=== PATIENT | female | born 1975 | race African-American/Black ===

== ENCOUNTER 2016-10-01 19:05 | Inpatient (IN) ==
[2016-10-01 20:09] LABS: BASO% 0.4 % (0.0-0.8); HEMATOCRIT 25.5 % (37.0-47.0); HEMOGLOBIN 7.5 g/dL (12.0-16.0); IMM GRAN# 0.02 X1000 (0.0-0.04); IMM GRAN% 0.2 % (0.0-0.5); LYMPH% 15.3 % (20.5-51.1); MANUAL DIFF NEEDED? YES; MCH 20.1 PG (27-31); MCHC 29.4 g/dL (33-37); MCV 68.4 FL (81-99); MONO# 0.83 X1000 (0.11-0.59); MONO% 8.5 % (1.7-9.3); MPV 9.1 FL (7.4-10.4); NEUT% 74.6 % (42.2-75.2); PLT 422 X1000 (130-400); RBC 3.73 XMIL (4.2-5.4)
[2016-10-01 20:21] LABS: EOS 2 % (1-10); LYMPHS 12 % (21-51); MONO 6 % (1-9)
[2016-10-01 20:22] LABS: HYPOCHROM OCCASIONAL
[2016-10-01 20:25] LABS: AGAP 13; ALBUMIN 3.8 g/dL (3.5-5.0); ALKALINE PHOSPHATASE 67 U/L (32-104); BUN 9 mg/dL (8-22); CALCIUM 9.4 mg/dL (8.8-10.2); CHLORIDE 98 mmol/L (98-107); COSMO 267; GOT 11 U/L (10-30); GPT 9 U/L (10-36); POTASSIUM 3.3 mmol/L (3.5-5.1); SODIUM 134 mmol/L (136-145); TCO2 22 mmol/L (25-35); TOTAL PROTEIN 8.5 g/dL (6.3-8.3)
--- NOTE | 2016-10-01 20:28 | EKG Report ---
Test Performed on : 10/01/2016 8:24:20 PM Test Reason : pain Blood Pressure : / mmHG Vent. Rate : 094 BPM Atrial Rate : 094 BPM P-R Int : 158 ms QRS Dur : 084 ms QT Int : 340 ms P-R-T Axes : 045 -01 017 degrees QTc Int : 425 ms Normal sinus rhythm. Normal ECG When compared with ECG of 12-APR-2015 09:46, No significant change was found Unconfirmed Result
--- NOTE | 2016-10-01 20:47 | Diag Imaging Result Doc PS360 ---
EXAM: CHEST-2 VIEWS HISTORY: cough TECHNIQUE: COMPARISON: 05/17/2015 FINDINGS: Poor inspiratory effort. Mild increased markings in the lower lungs likely representing atelectasis although there could be small underlying infiltrate in the left base. The heart is not enlarged. The vessels are not distended. No pleural effusions. IMPRESSION: Basilar atelectasis with questionable underlying infiltrate on the left. Electronically signed by Vasquez Kimball 10/01/2016 8:44 PM
--- NOTE | 2016-10-01 21:24 | Diag Imaging Result Doc PS360 ---
EXAM: ANGIOGRAM/PULMONARY ARTERIES HISTORY: chest pain TECHNIQUE: CT chest with intravenous contrast. Dose reduction protocol. COMPARISON: 05/10/2015. FINDINGS: There is a small left-sided pleural effusion measuring only 14 mm posteriorly and inferiorly in the midline. No right-sided effusion. Heart is mildly enlarged. No enlarged mediastinal lymph nodes. No thoracic aortic aneurysm. There are small filling defects within several branches of each lower lobe. No large central saddle emboli in the main pulmonary arteries. No consolidation. There is atelectasis in the lower left lung. Questionable small underlying infiltrate. IMPRESSION: There are pulmonary emboli within several branches of each lower lobe. A preliminary report was given to Dr. Marin in the emergency room at 9:20 PM Electronically signed by Vasquez Kimball 10/01/2016 9:22 PM
[2016-10-01 22:14] LABS: OCCULT BLOOD 1 NEGATIVE (NEGATIVE)
[2016-10-01 22:31] LABS: IRON SATURATION 3 %; TIBC 336 ug/dL; TOTAL IRON 11 ug/dL (49-151); UNBOUND IRON 325 ug/dL (112-346)
[2016-10-01] MEDS ORDERED: NS 1,000 ML IV ONE (22:53)
[2016-10-02] MEDS ORDERED: NS 1,000 ML IV ONE (08:17)
--- NOTE | 2016-10-02 09:01 | HISTORY AND PHYSICAL ---
REASON FOR ADMISSION: Shortness of breath. HISTORY OF PRESENT ILLNESS: The patient is a 41-year-old female, who unfortunately has a known history of pulmonary emboli. She had been on anticoagulation until several months ago, at which time she states that she quit her job and therefore could not afford her medications and had simply stopped them. She presented back to the emergency department at this time with shortness of breath, chest wall pain, hurt to breathe. Notes that she had been on Coumadin before, but it became too expensive. ALLERGIES: No known drug allergies. MEDICATIONS: No current medications. PAST MEDICAL HISTORY: Pulmonary emboli. Rectal-vaginal fistula. SOCIAL HISTORY: Patient continues to smoke approximately a pack a day. Did discuss with her that it would be a better lifelong decision to afford her Coumadin and stop paying for cigarettes. Discussed with her the perils of smoking to include pulmonary emboli and . REVIEW OF SYSTEMS: The patient denies any current chest pain. Denies any palpitation. Denies any fevers or chills. Does states that she is short of breath with much activity. Denies fevers or chills, dysuria, urinary frequency or urgency. Denies constipation, melena. Denies hematochezia, easy bruising or hematuria. FAMILY HISTORY: Noncontributory. PHYSICAL: Vital Signs: Temp 98, pulse 106, respiratory 18, BP 146/83, satting 98% on room air. General: Patient is awake, alert, oriented. Currently in no real respiratory distress. Speech is regular. Memory is intact. Neck: Supple. CV: Regular rate. Chest: Clear. Abdomen: Soft. Extremities: Moves all extremities. Neurologic: No focal changes. Skin: Warm, dry and no rashes. ASSESSMENT: 1. Left-sided pleural effusion. Stable. 2. Bilateral pulmonary emboli in the lower lobes. 3. Medical noncompliance. 4. Chronic depression. 5. Chronic tobacco abuse. PLAN: Discussed with patient the importance of staying on Coumadin. We will continue Lovenox twice a day. We will start her on mg/kg of Lovenox. Start Coumadin and follow. cc: Antoine Oconnor MD
[2016-10-02] MEDS: LOVENOX SUBQ SCH ×2 (09:35→21:07)
[2016-10-02] MEDS: COUMADIN PO SCH (21:07)
[2016-10-03] MEDS ORDERED: ZOFRAN IV PRN (06:39)
[2016-10-03] MEDS ORDERED: TYLENOL PO PRN (06:39)
[2016-10-03 07:19] LABS: INR 0.95 (0.86-1.15); PROTIME 13.4 Seconds (12.1-15.5)
--- NOTE | 2016-10-03 08:47 | PROGRESS NOTE ---
DATE: 10/03/2016 SUBJECTIVE: The patient denies any cough, congestion, denies any shortness of breath. Currently denies any nausea, vomiting, overnight. Does state that last night she had an episode of coughing and coughed up some blood, but has not done any since. PHYSICAL EXAMINATION: Temperature 98, pulse 74, respiratory rate 18, BP 127/70. Sat 100% on room air. General: Patient is awake, alert. She is currently in no real respiratory distress. She is pleasant to talk with. Neck supple. CV: Regular rate. Chest Relatively clear. Abdomen is soft. Extremities: Moves all extremities. Neurologic: No focal changes. Skin: Warm, dry. No rashes. LABORATORY DATA: INR 0.9. ASSESSMENT: 1. Bilateral pulmonary emboli lower lobe, stable. 2. Hemoptysis likely secondary to pulmonary emboli. We will check a chest x-ray. 3. Medical noncompliance. Patient notes that she stopped her medication. Again, I discussed with the patient the perils of this and the dangers. 4. Chronic tobacco abuse. Discussed with the patient reasons for stopping smoking. PLAN: We will continue Coumadin until INR is greater than. cc: Antoine Oconnor MD
[2016-10-03] MEDS: LOVENOX SUBQ SCH ×2 (08:57→20:26)
[2016-10-03 15:18] LABS: HEMOGLOBIN ELECTROPHORESIS SEE COMMENTS
[2016-10-03] MEDS: COUMADIN PO SCH (20:26)
[2016-10-04 06:08] LABS: INR 0.95 (0.86-1.15); PROTIME 13.4 Seconds (12.1-15.5)
--- NOTE | 2016-10-04 07:34 | Diag Imaging Result Doc PS360 ---
EXAM: CHEST-2 VIEWS - 10/04/2016 HISTORY: hypoxia TECHNIQUE: Chest two views COMPARISON: 10/01/2016 FINDINGS: There has been some increase in atelectasis plus or minus infiltrate at the left base. There is a small left pleural effusion. There is subsegmental atelectasis at the right base similar to the previous exam. There is no pneumothorax seen. Heart size is stable. IMPRESSION: Some increase in atelectasis plus or minus infiltrate at the left base. Small left pleural effusion. Electronically signed by Godfrey Ken 10/04/2016 7:31 AM
[2016-10-04] MEDS: LOVENOX SUBQ SCH ×2 (08:48→20:26)
[2016-10-04] MEDS ORDERED: VENOFER 300 MG in NS 250 ML IV ONE (11:30)
--- NOTE | 2016-10-04 11:57 | PROGRESS NOTE ---
DATE: 10/04/2016 SUBJECTIVE: Today, Ms. Low refers to be doing fine. Denies any complaints. OBJECTIVE: Vital Signs: Blood pressure 99/53, pulse 68, respirations 17, temperature is 98.2 degrees. General: Ms. Low is a 41-year-old, -[place] female. She is in bed, not in any seemingly distress. HEENT: Mucosa is slightly pale. Anicteric. Acyanotic. Neck is supple. Chest: Air entry is bilaterally reduced, more so to the right posterior lung field. Cardiovascular: Regular rate and rhythm. No murmurs. Abdomen is soft, nontender. Extremities: No pedal edema. HAND MARKER: Patient is awake, alert, and oriented x4. There is no focal neurological deficit. LABORATORY DATA: None for today. Significantly of note, the patient has a ferritin level of 34 and percent saturation of 3. IMAGING DATA: A CTA of the lungs was done which showed pulmonary emboli within several branches of each lower lobe. ASSESSMENT: 1. Acute hypoxemic respiratory distress on presentation secondary to bilateral pulmonary embolus. 2. Bilateral pulmonary embolus. This is not the first time the patient has had this. She had a similar presentation last year. Not quite sure if she does have an underlying thrombophilic tendencies, but would encourage her to continue with the current anticoagulation and follow up with Heme/Onc for further workup. So far, all the thrombophilic workup has been unrevealing. 3. Medical noncompliance. Patient has been advised. 4. Active tobacco abuse. Patient has been advised. 5. Iron deficiency anemia secondary to chronic blood loss. 6. Menometrorrhagia secondary to uterine fibroids. Patient follows up with an CONTINUOUS DRYOUT OPERATOR and has an appointment to do hysterectomy. So, in general, Ms. Low is relatively stable. INR is still subtherapeutic, so we are going to continue with the current therapy. We will give her a dose of iron infusion IV 300 mg for the remarkable iron deficiency anemia. Patient would eventually need to follow up with her CONTINUOUS DRYOUT OPERATOR for the hysterectomy appointment. Anticipate that hopefully by tomorrow or the day after, we might be able to discharge Ms. Low. We have stressed the importance of medication compliance with her and also tobacco cessation. cc: Hira Dudley MD
[2016-10-04] MEDS: COUMADIN PO SCH (20:26)
[2016-10-05 06:12] LABS: BASO% 1.2 % (0.0-0.8); EOS# 0.31 X1000 (0.0-0.7); EOS% 4.7 % (0.0-10.0); HEMATOCRIT 22.8 % (37.0-47.0); HEMOGLOBIN 6.5 g/dL (12.0-16.0); IMM GRAN# 0.01 X1000 (0.0-0.04); IMM GRAN% 0.2 % (0.0-0.5); LYMPH# 2.41 X1000 (1.2-3.4); LYMPH% 36.4 % (20.5-51.1); MANUAL DIFF NEEDED? NO; MCH 19.9 PG (27-31); MCHC 28.5 g/dL (33-37); MCV 69.9 FL (81-99); MONO# 0.57 X1000 (0.11-0.59); MONO% 8.6 % (1.7-9.3); MPV 8.6 FL (7.4-10.4); NEUT% 48.9 % (42.2-75.2); PLT 382 X1000 (130-400); RBC 3.26 XMIL (4.2-5.4)
[2016-10-05 06:27] LABS: AGAP 8; BUN 8 mg/dL (8-22); CALCIUM 8.8 mg/dL (8.8-10.2); CHLORIDE 104 mmol/L (98-107); COSMO 268; POTASSIUM 3.8 mmol/L (3.5-5.1); SODIUM 135 mmol/L (136-145); TCO2 22 mmol/L (25-35)
[2016-10-05 06:47] LABS: INR 1.16 (0.86-1.15); PROTIME 15.7 Seconds (12.1-15.5)
[2016-10-05] MEDS ORDERED: NS 1,000 ML IV SCH (07:25)
[2016-10-05] MEDS: LOVENOX SUBQ SCH ×2 (08:09→20:11)
[2016-10-05] MEDS: DIFLUCAN PO SCH (12:08)
[2016-10-05] MEDS: PROVERA PO SCH ×2 (13:38→20:17)
--- NOTE | 2016-10-05 13:48 | PROGRESS NOTE ---
DATE: 10/05/2016 SUBJECTIVE: Today Ms. Low refers to be doing a little better. She says she is having some vaginal itching but the vaginal bleed is improving. OBJECTIVE: Vital signs: Blood pressure is 117/47, pulse of 67, respirations 16 , temperature 97.7 degrees, saturation is 95%. General: Ms. Low 41 years old female. She is in bed, no distress. HEENT: Mucosa is pink and moist. Anicteric. Acyanotic. Neck: Supple. Chest: Good air entry bilateral. A few crepitations to the posterior right lung field. Cardiovascular: Regular rate and rhythm. No murmurs, no rubs. No gallops. Abdomen: Soft, just minimally tender in the lower abdomen. There is a palpable uterine mass almost at the size of 16 weeks of gestation and this is due to the uterine fibroid. There is no hepatosplenomegaly. Extremities: No pedal edema. GAMBLING SUPERVISOR: Patient is awake, alert and oriented x4. There is no focal neurological deficit. LABORATORY DATA: Today hemoglobin is 6.5, platelet count of 385,000, WBC is normal. Chemistry is reviewed. Sodium is 135, ferritin is 34. ASSESSMENT: 1. Acute hypoxemic respiratory distress on presentation secondary to bilateral pulmonary emboli. Patient is on Coumadin as well as heparin being bridged. INR this morning is 1.16. Will continue with the current dose of Coumadin. 2. Medical noncompliance. Patient has been advised. 3. Active tobacco abuse. Patient has been advised. 4. Iron deficiency anemia secondary to chronic blood loss. The patient has been given a dose of iron. This morning hemoglobin is lower so we are going to transfuse her 2 PRBCs. 5. Menorrhagia secondary to uterine fibroids. According to the patient she does not have any primary care physician, she does not have any obstetrics and gynecology that normally follows up. We would therefore get OBGYN to see her here in the hospital before we discharge her. 6. Suspected Isabelle vaginitis. Will start the patient on fluconazole. So today Ms. Low is doing relatively fine. Will put her on 3 day course of fluconazole for suspected Isabelle vaginitis. Will consult WAREHOUSE LOGISTICS COORDINATOR to evaluate her for the uterine fibroids. We will continue with her anticoagulation and we are going to transfuse her 2 units of PRBC today and follow up with her hemoglobin and hematocrit. Discharge soon cc: Hira Dudley MD MTDD
--- NOTE | 2016-10-05 19:48 | CONSULTATION ---
DATE OF CONSULTATION: 10/05/2016 REASON FOR CONSULTATION: Menorrhagia. SUMMARY: Tara Low is a 41-year-old 4, para 4. I delivered her 1st child 17 years ago. She has a pulmonary embolism and is currently on anticoagulants. Her hemoglobin and hematocrit has dropped from 7.5/35.5 to 6.5/22.8. She states that her menstrual cycles are irregular and they are heavy and prolonged. This has been a chronic problem. She has also been told that she has uterine leiomyomata. On physical examination there are palpable pelvic masses to her umbilicus. IMPRESSION: 1. Menorrhagia. 2. Uterine leiomyomata. PLAN: She was having heavy periods and was anemic before and anticoagulants can certainly make the condition worse. Estrogen therapy is contraindicated due to her pulmonary embolism. We also cannot use Lysteda. Our only option is high doses of Provera that should not make her coagulation problems worse. I would put her on 20 mg by mouth 3 times a day and of course I would like to see her in the office after discharge so we can talk about definitive surgery. cc: Noah Adams MD MTDD
[2016-10-05] MEDS: COUMADIN PO SCH (20:11)
[2016-10-06] MEDS: PROVERA PO SCH ×3 (05:15→20:41)
[2016-10-06 06:36] LABS: EOS# 0.36 X1000 (0.0-0.7); EOS% 3.3 % (0.0-10.0); HEMATOCRIT 29.8 % (37.0-47.0); HEMOGLOBIN 9.3 g/dL (12.0-16.0); IMM GRAN# 0.05 X1000 (0.0-0.04); IMM GRAN% 0.5 % (0.0-0.5); LYMPH# 2.95 X1000 (1.2-3.4); LYMPH% 26.7 % (20.5-51.1); MANUAL DIFF NEEDED? YES; MCHC 31.2 g/dL (33-37); MCV 70.6 FL (81-99); MONO# 0.82 X1000 (0.11-0.59); MONO% 7.4 % (1.7-9.3); MPV 8.5 FL (7.4-10.4); NEUT% 61.1 % (42.2-75.2); PLT 373 X1000 (130-400); RBC 4.22 XMIL (4.2-5.4)
[2016-10-06 07:26] LABS: LYMPHS 29 % (21-51)
[2016-10-06 07:32] LABS: INR 1.21 (0.86-1.15); PROTIME 16.3 Seconds (12.1-15.5)
[2016-10-06] MEDS: DIFLUCAN PO SCH (09:45)
[2016-10-06] MEDS: LOVENOX SUBQ SCH ×2 (09:46→20:40)
--- NOTE | 2016-10-06 14:35 | PROGRESS NOTE ---
DATE: 10/06/2016 SUBJECTIVE: Ms Low states she is doing better. Vaginal itching is improving somewhat. Vaginal bleeding is improving. She denies any chest pain, shortness of breath, GI or issues. OBJECTIVE: Vital Signs: Blood pressure is 132/59 with a heart rate of 70, respirations are 20, temperature is 98.7 degrees with room air saturations of 97-100%. HEENT: Head is normocephalic, atraumatic. Pupils equal, round, react to light. EOMS are intact. Sclerae are nonicteric. Mucous membranes are moist. Neck: Supple. Trachea midline. Cardiovascular: Regular rate and rhythm. S1, S2 appreciated. Pulmonary: Breath sounds are clear with no increased work of breathing noted. Gastrointestinal: Abdomen is soft with some lower abdomen tenderness, which she states has improved somewhat. Bowel sounds are present in all 4 quadrants. Extremities: No clubbing, cyanosis, or edema. Calves are nontender. Pulses are palpable x4. Neurologic: She is alert and oriented x3. DIAGNOSTICS: Labs: WBC is 11.04 with a hemoglobin of 9.3, hematocrit 29.8, and platelets of 373,000. INR is 1.21. ASSESSMENT: 1. Acute hypoxemic respiratory distress on presentation secondary to bilateral pulmonary emboli. The patient's INR is up to 1.2 today. We will continue with the current dose of Coumadin as well as Lovenox bridging. Once she is therapeutic at 2-3, we will admit be able to stop Lovenox. 2. Menorrhagia secondary to uterine fibroids. Ms Low was evaluated by Dr. Adams who recommended Provera with followup with him as an outpatient to talk about definitive surgery. 3. Medical noncompliance. The patient has been advised on the importance of following up with physicians and taking medications as prescribed. 4. Iron deficiency anemia secondary to chronic blood loss. This morning her hemoglobin and hematocrit are 9.3 and 29.8. We will continue to trend. 5. Suspected Isabelle vaginitis. We will continue fluconazole. Dictated by BIRGIT Johnson for Talha Sánchez MD cc: BIRGIT Johnson MD pt examined, agree with above APENOT MTDD
[2016-10-06] MEDS: COUMADIN PO SCH (20:41)
[2016-10-07] MEDS: PROVERA PO SCH ×3 (05:01→20:26)
[2016-10-07 06:09] LABS: HEMATOCRIT 30.6 % (37.0-47.0); HEMOGLOBIN 9.3 g/dL (12.0-16.0); MCH 21.9 PG (27-31); MCHC 30.4 g/dL (33-37); MPV 9.1 FL (7.4-10.4); RBC 4.25 XMIL (4.2-5.4)
[2016-10-07 06:23] LABS: AGAP 9; BUN 11 mg/dL (8-22); CALCIUM 8.8 mg/dL (8.8-10.2); CHLORIDE 106 mmol/L (98-107); COSMO 273; POTASSIUM 4.1 mmol/L (3.5-5.1); SODIUM 137 mmol/L (136-145); TCO2 22 mmol/L (25-35)
[2016-10-07 06:27] LABS: INR 1.32 (0.86-1.15); PROTIME 17.5 Seconds (12.1-15.5)
[2016-10-07] MEDS: DIFLUCAN PO SCH (08:50)
[2016-10-07] MEDS: LOVENOX SUBQ SCH ×2 (08:50→20:25)
--- NOTE | 2016-10-07 09:53 | PROGRESS NOTE ---
DATE: 10/07/2016 SUBJECTIVE: Patient without any new complaints, still complains of left shoulder and left chest wall pain when she takes a deep breath. PHYSICAL EXAMINATION: Vital Signs: Temperature 98, pulse 59, respiratory rate 18, BP 112/52, saturation 98% on room air. General: Patient is awake, alert, currently in no respiratory distress. She is lying flat in the bed. HEENT: Normocephalic, atraumatic. PERRLA. Neck: Supple. CV: Regular rate. Chest: Clear. Abdomen: Soft. Extremities: Moves all extremities. Neurologic: No changes. Skin: Warm and dry. No rashes. LABS: Reviewed and stable. INR 1.32. ASSESSMENT: 1. Bilateral pulmonary emboli. Her INR is still low at 1.3. Her Coumadin has not been adjusted in several days. We will increase her Coumadin tonight and follow. She will need to remain in the hospital until her INR is therapeutic at 2-3. 2. Menorrhagia secondary to uterine fibroids. We will continue Provera. 3. Medical noncompliance. 4. Iron deficiency anemia. PLAN: Hopefully home in the next few days. cc: Antoine Oconnor MD
[2016-10-07] MEDS: COUMADIN PO SCH (20:25)
[2016-10-08] MEDS: PROVERA PO SCH ×3 (04:54→21:19)
[2016-10-08 06:08] LABS: INR 1.54 (0.86-1.15); PROTIME 19.7 Seconds (12.1-15.5)
--- NOTE | 2016-10-08 08:43 | PROGRESS NOTE ---
DATE: 10/08/2016 SUBJECTIVE: Patient without any new complaints. Still complains of left-sided chest wall pain with deep inspiration or with movement. Denies any fevers or chills. OBJECTIVE: Vital signs reviewed. Temperature 99 degrees, pulse 74, respiratory rate 18, BP 105/97, sat 98% on room air. General: The patient is awake, alert, oriented. Currently in no respiratory distress. She, unfortunately, is not getting out of bed without much prodding and prompting. HEENT: Normocephalic, atraumatic. MAGALY. Neck supple. CV: Regular rate. Chest: Relatively clear. No wheezing. No crackles. Abdomen is soft. Extremities: Moves all extremities. Neurologic: No changes. LABORATORY: INR 1.5. ASSESSMENT: 1. Bilateral pulmonary emboli. Patient's INR has finally started to move a little; it is at 1.5. We did increase her Coumadin last night to 20 mg. She has been on the same dose for several days and probably has already reached the steady state of that dose. 2. Menorrhagia; continue progesterone. PLAN: We will keep in the hospital until her INR is greater than 2. cc: Antoine Oconnor MD
[2016-10-08] MEDS: LOVENOX SUBQ SCH ×2 (08:54→21:17)
[2016-10-08] MEDS: DIFLUCAN PO SCH (08:54)
[2016-10-08] MEDS ORDERED: MYLICON PO ONE (13:53)
[2016-10-08] MEDS: MIRALAX PO SCH (18:44)
[2016-10-08] MEDS: COUMADIN PO SCH (21:16)
[2016-10-09] MEDS: PROVERA PO SCH ×3 (04:29→20:21)
[2016-10-09 06:41] LABS: INR 1.89 (0.86-1.15); PROTIME 23.2 Seconds (12.1-15.5)
[2016-10-09] MEDS ORDERED: LACTULOSE PO ONE (09:06)
[2016-10-09] MEDS: DIFLUCAN PO SCH (09:29)
[2016-10-09] MEDS: LOVENOX SUBQ SCH ×2 (09:29→20:20)
[2016-10-09] MEDS: MIRALAX PO SCH (09:29)
[2016-10-09] MEDS ORDERED: COUMADIN PO SCH ×2 (21:00)
[2016-10-10] MEDS: PROVERA PO SCH ×3 (04:13→20:00)
[2016-10-10 09:34] LABS: INR 3.61 (0.86-1.15); PROTIME 38.8 Seconds (12.1-15.5)
[2016-10-10] MEDS: DIFLUCAN PO SCH (10:19)
[2016-10-10] MEDS: LOVENOX SUBQ SCH ×3 (10:19→20:04)
[2016-10-10] MEDS: MIRALAX PO SCH (10:19)
--- NOTE | 2016-10-10 17:07 | PROGRESS NOTE ---
DATE: 10/10/2016 SUBJECTIVE: The patient without any new complaints. PHYSICAL EXAMINATION: Vital Signs: Reviewed. She is awake, alert, oriented. She is in no respiratory distress. Blood pressure is stable. Heart rate 80, respiratory 20. General: Patient is awake, alert, oriented. HEENT: Normocephalic, atraumatic. MAGALY. Neck: Supple. Cardiovascular: Regular rate. Chest: Clear. ASSESSMENT: 1. Hypercoagulopathy. Her INR has jumped to 3.5 from 1.8. We will hold her Coumadin tonight and decrease her dose. Certainly, I expect that it could go higher, with such a rapid increase. 2. Menorrhagia. She has had increased vaginal bleeding after INR was elevated. This is to be somewhat expected. Unfortunately, Ms. Low continues to refuse Provera, stating she is not going to take this at home. Again, discussed with her that surgery is not an option with a recent pulmonary embolus, and that she needs to take Provera to decrease the bleeding. 3. Medical noncompliance. 4. Iron deficiency anemia, secondary to chronic blood loss, secondary to menorrhagia. PLAN: As noted above, we will decrease her Coumadin dose to 10 mg. We will also hold her Coumadin tonight. Hopefully, she can be discharged home soon. cc: Antoine Oconnor MD
--- NOTE | 2016-10-10 17:15 | PROGRESS NOTE ---
DATE: 10/09/2016 SUBJECTIVE: The patient has no new complaints. She states left-sided chest wall pain with deep inspiration continues although she thinks this may be a little better. She denies fever or chills. OBJECTIVE: Vital Signs: Blood pressure 121/67 with a heart rate of 80, respirations are 18, temperature is 99.2 degrees with room air saturation of 97-100%. Cardiovascular: Regular rate and rhythm. S1 and S2 appreciated. Pulmonary: Breath sounds are clear with no increased work of breathing noted. Gastrointestinal: Abdomen is soft, nontender, nondistended with bowel sounds in all 4 quadrants. Extremities: No clubbing, cyanosis, or edema. Calves nontender. Pulses are palpable x4. Neurologic: She is alert and oriented x3. Cranial nerves 2-12 grossly intact. LABS: INR is 1.89. ASSESSMENT AND PLAN: 1. Bilateral pulmonary emboli. Patient's INR is 1.89. We will continue with her Coumadin and trend INRs. 2. Menorrhagia. The patient took the first doses of progesterone on October 05 but she has refused doses since. We will continue to follow. She does state that she has scant vaginal bleeding. Dictated by BIRGIT Johnson for Antoine Oconnor MD cc: BIRGIT Johnson MD
--- NOTE | 2016-10-10 17:35 | PROGRESS NOTE ---
DATE: 10/10/2016 SUBJECTIVE: The patient is sitting up in a chair. She states that she is having a little more vaginal bleeding today having used 1 pad. OBJECTIVE: Vital Signs: Blood pressure is 130/87 with a heart rate of 80, respirations are 18, room air saturations are 97-99%. General: Ms. Low is awake and alert. She is sitting up in a chair watching TV. Cardiovascular: Regular rate and rhythm S1, S2 appreciated. Pulmonary: Breath sounds are clear. No increased work of breathing noted. Gastrointestinal: Abdomen is soft, nontender, nondistended. Bowel sounds in all 4 quadrants. Extremities: No clubbing, cyanosis, or edema. Calves nontender. Pulses are palpable x4. Neurologic: She is alert and oriented x3. LABORATORY DATA: INR is 3.61. ASSESSMENT: 1. Bilateral pulmonary emboli. Patient's INR is elevated today. We will hold her Coumadin today, decreased the dose and continue to follow daily. 2. Menorrhagia. Patient continues to refuse her progesterone stating "that doctor does not know what he is doing, it is not time for my cycle yet." Despite explanations regarding progesterone she continues to refuse. She stated today that she continues with some scant bleeding, stating it has it has not changed in the last 2 days. We will continue to trend. We will continue to follow. Dictated by BIRGIT Johnson for Antoine Oconnor MD cc: BIRGIT Johnson MD
[2016-10-11] MEDS: PROVERA PO SCH (06:21)
[2016-10-11 06:58] LABS: INR 3.75 (0.86-1.15)
[2016-10-11] MEDS: DIFLUCAN PO SCH (08:36)
[2016-10-11] MEDS: LOVENOX SUBQ SCH (08:36)
[2016-10-11] MEDS: MIRALAX PO SCH (08:41)
[2016-10-11 11:48] VITALS: BP 128/72
--- NOTE | 2016-10-11 14:46 | DISCHARGE SUMMARY ---
ADMISSION DATE: 10/01/2016 DISCHARGE DATE: 10/11/2016 DIAGNOSES: 1. Bilateral pulmonary emboli, lower lobes. 2. Hypercoagulopathy. 3. Menorrhagia. 4. Iron deficiency anemia secondary to chronic blood loss secondary to menorrhagia. 5. Medical noncompliance. DIAGNOSTICS: 10/01/2016 pulmonary arteriogram revealed pulmonary emboli within several branches of each lower lobe. 10/04/2016 chest x-ray revealed atelectasis or infiltrate at the left base with a small left pleural effusion. HOSPITAL COURSE: Ms. Low presented to the Emergency Room complaining of shortness of breath. She has a known history of pulmonary emboli for which she had been on anticoagulation but several months ago she quit her job and could not afford her medication so she simply stopped them. Of note, she was on Coumadin but it became too expensive. CTA pulmonary was performed which revealed bilateral pulmonary emboli for which she was restarted on Coumadin. We did trend her INR and currently she went from 1.89 to 3.61. Warfarin was held and today she is 3.75. She has not complained of any further shortness of breath or dyspnea on exertion. She does have a history of menorrhagia and she did have vaginal bleeding during the hospitalization and in the setting of this and the patient needing anticoagulation we did consult Dr. Adams in Gynecology for assistance. She states that her menstrual cycles have always been irregular, heavy, and prolonged and this has increased in the past year or so. She does have a uterine leiomyomata. Dr. Adams recommended that the patient be placed on high doses of Provera, this should not make her coagulation problems worse, with follow up in his office after discharge to talk about definitive surgery. The patient took Provera, the first dose, and after this she has been refusing stating "that doctor does not know what he is doing, it is not time for my cycle". Despite myself and Dr. Oconnor as well as the nurses attempting to explain to the patient the reasons for Provera in the setting of anticoagulation and her bleeding she continued to refuse. Dr. Adams is aware. She has had scant bleeding over the last 48 hours stating that has used 1-2 pads a day. During the hospitalization, on admission she did have a hemoglobin and hematocrit of 7.5 and 25.5 and this did decrease to 6.5 and 22.8 for which she was transfused 2 units of packed cells. Hemoglobin and hematocrit is 9.3 and 30.6 post transfusion. DISCHARGE PHYSICAL EXAMINATION: CARDIOVASCULAR: Regular rate and rhythm. S1 and S2 appreciated. PULMONARY: Breath sounds are clear with no increased work of breathing noted. GASTROINTESTINAL: The abdomen is soft, nontender, and nondistended with bowel sounds in all four quadrants. BACK: No CVAT. No spine tenderness. MUSCULOSKELETAL: Good range of motion of the joints. NEUROLOGICAL: She is alert and oriented times 3. EXTREMITIES: No clubbing, cyanosis, or edema. Calves are nontender. Pulses are palpable times 4. DISCHARGE MEDICATIONS: 1. Warfarin 5 mg p.o. nightly at bedtime. 2. Provera 20 mg p.o. every 8 hours. We did speak to the patient at length regarding smoking with the perils to include pulmonary emboli and and that it would be a better lifelong decision to afford Coumadin and stop paying for cigarettes of which the patient states that she is not interested in stopping smoking. FOLLOW UP: 1. She is to follow up with Dr. Adams. She needs to call in the next week or two and have an appointment to discuss definitive treatment for menorrhagia. 2. She has been given the numbers to the [facility] as well as the [facility] to call Thursday to be seen and have her INR drawn. She is aware that she can have subsequent INRs drawn there and have management per this clinic. She has been instructed to hold her Coumadin tonight which is Thursday night and on Thursday night take 10 mg and have her INR checked on Thursday. Further dosing will be per the clinic instructions. She does voice understanding of this. She was given this in writing as well as verbally. The patient is being given a prescription for Provera as stated per Dr. Adams. She does state that she has no intentions of taking this. She is being discharged home in stable condition with family members. Dictated by BIRGIT Johnson for Antoine Oconnor MD cc: BIRGIT Johnson MD
--- NOTE | 2016-10-17 09:31 | PROVIDER DOCUMENTATION ---
This chart was entered by Jana Patel Scribe, acting as scribe for Tevin Marin MD. HPI-General Adult - General Chief Complaint: General Adult Stated Complaint: "BLOOD CLOTS LT SIDE" Time Seen by Provider: 10/01/16 19:38 Source: patient Allergies/Adverse Reactions: Patient Allergies Allergy/AdvReac Type Severity Reaction Status Date / Time No Known Allergies Allergy Verified 08/01/12 09:30 Home Medications: Home Medication List Medication Instructions Recorded Confirmed Last Taken Type Medroxyprogesterone [Provera] 20 mg PO Q8H #90 tablet 10/11/16 Unknown Rx Warfarin [Coumadin] 5 mg PO QHS #45 tablet 10/11/16 Unknown Rx - History of Present Illness -Gen Adult Nature of Presenting Problems: 41 year old F presents to the ED with a cc of a possible blood clot. Pt states that in 2015 she was hospitalized for a PE. Pt states that she was prescribed Coumadin. PT states that she has stopped taking it due to it being too expensive. PT states that Thursday night she became short of breath and chest pain. PT states that this is similar to the last time she had a PE. Location of Pain/Injury: reports: chest Pain Radiation: reports: no radiation Quality of Pain: reports: sharp Severity: reports: mild Onset/Duration: reports: 5 days ago Timing: reports: still present Associated Symptoms: reports: chest pain, shortness of breath Similar Symptoms Previously?: No Recently seen or treated by another doctor?: No Review of Systems - Adult - REVIEW OF SYSTEMS - ADULT Constitutional: denies: chills, fever Eyes: reports: no symptoms reported Ears, Nose, Mouth & Throat: reports: no symptoms reported Cardiovascular: reports: chest pain. denies: edema, palpitations Respiratory: denies: cough, shortness of breath Gastrointestinal: denies: abdominal pain, nausea, vomiting Genitourinary: reports: no symptoms reported Musculoskeletal: reports: no symptoms reported Integumentary: reports: no symptoms reported Neurological: reports: no symptoms reported Psychiatric: reports: no symptoms reported Endocrine: reports: no symptoms reported Hematologic/Lymphatic: reports: blood clots. denies: prolonged bleeding, transfusions Allergic/Immunologic: reports: no symptoms reported All Other Systems: Reviewed and Negative Past History - Adult - PAST MEDICAL HISTORY-ADULT Review of Records: reports: Nursing Assessment Review, Medications Reviewed Major Childhood Illnesses: reports: denies history Psychiatric: reports: depression - PRIOR SURGERIES/PROCEDURES Surgical/Procedure History: reports: other (rectal vaginal fistula) - IMMUNIZATION STATUS Childhood Immunizations: See Nurse Assessment Flu Vaccine: See Nurse Assessment - SOCIAL HISTORY Smoking: cigarettes Provider spent 3-5 mins advising pt. on dangers of tobacco.: Discussed manners to quit use, and f/u contacts for add'l counseling. Substance Use: none/never Alcohol Use Frequency: never Living Situation: family Physical Exam-General - PHYSICAL EXAM-ADULT Initial Vital Signs Reviewed: Yes - CONSTITUTIONAL General Appearance: appears well, alert, no apparent distress - RESPIRATORY Respiratory: chest non-tender, lungs clear, normal breath sounds - CARDIOVASCULAR Cardiovascular: normal peripheral pulses, regular rate, rhythm, no edema - GASTROINTESTINAL (ABDOMEN) Abdominal Exam: normal bowel sounds, non tender, soft - MUSCULOSKELETAL Extremity: non-tender, normal inspection, no pedal edema, no calf tenderness - SKIN Integumentary: normal color, normal turgor, warm/dry - PSYCHIATRIC Psych/Mental Status: normal mood/affect, normal thought content, normal thought process, oriented x 3 Progress - PLAN OF CARE/RESULTS Progress/Plan/Lab Results: Vital Signs - 8 hr 10/01/16 19:11 Temperature 98 F Pulse Rate 106 H Respiratory Rate 18 Blood Pressure 146/83 O2 Sat by Pulse Oximetry 97 Orders Category Date Time Status CHEST-2 VIEWS [RAD] Stat Exams 10/01/16 19:44 Ordered CBC WITH DIFF [HEME] Stat Lab 10/01/16 19:43 Ordered CMP [COMPREHENSIVE METABOLIC PANEL] [CHEM] Stat Lab 10/01/16 19:43 Ordered D-D[address]ER [address] [COAG] Stat Lab 10/01/16 19:43 Ordered EKG [EKG] Stat Ther 10/01/16 19:44 Ordered Result Diagrams: 10/07/16 05:15 10/07/16 05:15 - EKG 1 Time of EKG reading by physician:: 20:24 EKG Read and Signed by:: Tevin Marin EKG Interpretation (*Must complete 3 of following elements*): Normal Rate: 94 Rhythm: NSR [place]: normal - XRAY 1 XRAY Study: Chest Impression: Abnormal (FINDINGS: Poor inspiratory effort. Mild increased markings in the lower lungs likely representing atelectasis although there could be small underlying infiltrate in the left base. The heart is not enlarged. The vessels are not distended. No pleural effusions. IMPRESSION: Basilar atelectasis with questionable underlying infiltrate on the left.-- Dr. Kimball(radiologist)) - CT/MRI 1 CT Study: Angiogram Impression: Abnormal (FINDINGS: There is a small left-sided pleural effusion measuring only 14 mm posteriorly and inferiorly in the midline. No right- sided effusion. Heart is mildly enlarged. No enlarged mediastinal lymph nodes. No thoracic aortic aneurysm. There are small filling defects within several branches of each lower lobe. No large central saddle emboli in the main pulmonary arteries. No consolidation. There is atelectasis in the lower left lung. Questionable small underlying infiltrate. IMPRESSION: There are pulmonary emboli within several branches of each lower lobe.-- Dr. Kimball(radiologist)) - CONSULTS/PCP/HOSPITALIST Notification #1 *Consult/PCP/Hospitalist*: Dr. Kimball(radiologist) Time Discussed: 21:21 Consult Disposition: other (Pt has a PE on CT) #2 Consult: Dr. Bergman(hospitalist) Time Discussed: 21:44 Reason/Comments: admission for PE Consult Disposition: Admit Departure - Departure Date of Disposition Decision: 10/02/16 Time of Disposition Decision: 08:00 DIAGNOSIS: Bilateral pulmonary embolism, Pulmonary embolism Disposition: ADMITTED INPATIENT 09 Certified Medical Emergency: Emergent Condition: Stable - Critical Care Note This patient required my direct & personal management of CC.: Yes Total Time (mins): 35 Critical Care Statement: This patient required my direct personal management to treat or rule out processes, the absence of which, could potentiallly result in sudden, clinically significant life or limb threatening deterioration. Attestation - Physician/ LORRAINE Attestation The physician spent face to face time with patient:: Yes Advanced Practice Provider documentation review:: Supervising physician onsite and consulted in the evaluation and care of this patient. The physician did have a face to face encounter with the patient. This chart was documented by the indicated scribe, (Jana Patel Scribe) and accurately reflects the services I performed and decisions made by me, Tevin Marin MD, as attested by the provider's signature.
== END 2016-10-11 12:27 | disposition home or self-care (01) ==
LOC: P.ED 19:05 → P.MEDSURG 22:21 → SUATTDRO 22:21
PROVIDERS: ATTEND Family Medicine